=== PATIENT | male | born 1955 | race Caucasian/White ===

== ENCOUNTER → 2016-10-26 | Outpatient (CLI) | payer MEDICARE, BC | END | disposition home or self-care (01) | LOC: PCVCCLINIC 14:41 | PROVIDERS: ATTEND Internal Medicine Cardiovascular Disease | DX: I42.8 Other cardiomyopathies (principal); E78.00 Pure hypercholesterolemia, unspecified; I10 Essential (primary) hypertension; E11.9 Type 2 diabetes mellitus without complications; I25.10 Atherosclerotic heart disease of native coronary artery without angina pectoris; I48.0 Paroxysmal atrial fibrillation; I44.7 Left bundle-branch block, unspecified; I77.9 Disorder of arteries and arterioles, unspecified | CPT/HCPCS: 80061; 93005; G0463 ==

== ENCOUNTER → 2016-11-03 | Outpatient (CLI) | payer MEDICARE, BC | END | disposition home or self-care (01) | LOC: PCVCIMAG 13:24 | PROVIDERS: ATTEND Internal Medicine Cardiovascular Disease | DX: I65.22 Occlusion and stenosis of left carotid artery (principal); R07.9 Chest pain, unspecified; I42.8 Other cardiomyopathies; I10 Essential (primary) hypertension | CPT/HCPCS: 93306; 93880 ==

== ENCOUNTER → 2016-11-22 | Outpatient (CLI) | payer MEDICARE, BC ==
[~2016-11-22] MED LIST: DIAZEPAM 10 MG TABLET ONE; FENTANYL PF 100 MCG/2 ML VIAL. ONE; IOHEXOL 350 MG/ML 100ML VIAL. ONE; IOHEXOL 350 MG/ML 50 ML VIAL. ONE; IV NORMAL SALINE 1000ML BAG 1,000 ML ONE; LIDOCAINE 1% Multi-Dose 20 ML VIAL. ONE; MIDAZOLAM HCL 2 MG/2 ML VIAL. ONE; REGADENOSON 0.4 MG/5 ML DISP.SYRIN. IV ONE
== END | disposition home or self-care (01) ==
LOC: PCVCINTER 08:11
PROVIDERS: ATTEND Internal Medicine Cardiovascular Disease
DX: I42.8 Other cardiomyopathies (principal); E78.00 Pure hypercholesterolemia, unspecified; I10 Essential (primary) hypertension; E11.9 Type 2 diabetes mellitus without complications; I25.10 Atherosclerotic heart disease of native coronary artery without angina pectoris; I48.0 Paroxysmal atrial fibrillation; I44.7 Left bundle-branch block, unspecified; I77.9 Disorder of arteries and arterioles, unspecified
CPT/HCPCS: 75625; 93458; C1751; C1760; C1769; C1894; J2250; J2785; J3010; J7030; Q9967

== ENCOUNTER → 2017-06-01 | Outpatient (CLI) | payer MEDICARE, BC ==
--- NOTE | 2017-06-01 14:41 | PCVCIMAG ---
APPROVED REPORT Study performed: 06/01/2017 13:08:00 EXAM: Comprehensive 2D, Doppler, and color-flow Echocardiogram Patient Location: Echo lab Status: routine BSA: 2.42 HR: 58 bpmBP: 118/80 mmHg Rhythm: LBBB Other Information Study Quality: Good Risk Factors: Cardiac Risk Factors: HTN, Hyperlipidemia, Diabetes (insulin) Indications Diabetes Hypertension/HDD Hyperlipidemia, Cardiomyopathy, 2D Dimensions IVSd: 14.62 (7-11mm)LVOT Diam: 21.32 (18-24mm) LVDd: 46.23 mm PWd: 12.36 (7-11mm)Ascending Ao: 34.05 (22-36mm) LVDs: 38.46 (25-40mm) Left Atrium: 35.10 (27-40mm) Aortic Root: 30.77 mm LV Single Plane 4CH: 50.69 % LV Single Plane 2CH: 51.81 %Moore's LVEF: 51.25 % Biplane EF: 51.7 % Volumes Left Atrial Volume (Systole) Single Plane 4CH: 57.54 mLSingle Plane 2CH: 57.92 mL LA ESV Index: 26.00 mL/m2 Aortic Valve AoV Peak Keo.: 1.77 m/s AO Peak Gr.: 12.49 mmHgLVOT Max P.56 mmHg LVOT Max V: 1.37 m/s MANJU Vmax: 2.78 cm2 AI Vmax: 4.05 m/s AI [place]: 1.68 m/s2 AI PHT: 698.84 ms Mitral Valve E/A Ratio: 0.8 MV Decel. Time: 280.50 ms MV E Max Keo.: 1.02 m/s MV A Keo.: 1.27 m/s IVRT: 134.95 ms TDI E/Lateral E': 12.75E/Medial E': 12.75 Medial E' Keo.: 0.08 m/s Lateral E' Keo.: 0.08 m/s Pulmonary Valve PV Peak Gr.: 3.12 mmHg Pulmonary Vein P Vein S: 0.51 m/sP Vein A: 0.32 m/s P Vein D: 0.42 m/sP Vein A Dur.: 121.1 msec P Vein S/D Ratio: 1.21 Left Ventricle The left ventricle is normal size. There is normal LV segmental wall motion. There is normal left ventricular wall thickness. Left ventricular systolic function is mildly decreased. LVEF is 50%. The left ventricular diastolic function is normal. Right Ventricle The right ventricle is normal size. The right ventricular systolic function is normal. Atria The left atrium size is normal. The right atrium size is normal. Aortic Valve The aortic valve is normal in structure. Trace aortic regurgitation. There is no aortic valvular stenosis. Mitral Valve The mitral valve is normal in structure. There is no mitral valve regurgitation noted. No evidence of mitral valve stenosis. Tricuspid Valve The tricuspid valve is normal in structure. There is no tricuspid valve regurgitation noted. Pulmonic Valve The pulmonary valve is normal in structure. Trace pulmonic regurgitation. Great Vessels The aortic root is normal in size. IVC is normal in size and collapses with >50% inspiration Pericardium There is no pericardial effusion. <Conclusion> The left ventricle is normal size. There is normal left ventricular wall thickness. LVEF is 50%. The left ventricular diastolic function is normal. The right ventricle is normal size. The left atrium size is normal. The aortic valve is normal in structure. There is no mitral valve regurgitation noted. There is no tricuspid valve regurgitation noted. There is no pericardial effusion.
== END | disposition home or self-care (01) ==
LOC: PCVCIMAG 13:17
PROVIDERS: ATTEND Internal Medicine Cardiovascular Disease
DX: I35.1 Nonrheumatic aortic (valve) insufficiency (principal); I37.1 Nonrheumatic pulmonary valve insufficiency; I44.7 Left bundle-branch block, unspecified; I42.9 Cardiomyopathy, unspecified; I10 Essential (primary) hypertension; E78.00 Pure hypercholesterolemia, unspecified; E11.9 Type 2 diabetes mellitus without complications; I25.10 Atherosclerotic heart disease of native coronary artery without angina pectoris; I48.0 Paroxysmal atrial fibrillation; Z96.653 Presence of artificial knee joint, bilateral; Z79.82 Long term (current) use of aspirin; Z79.4 Long term (current) use of insulin; Z79.899 Other long term (current) drug therapy; Z87.891 Personal history of nicotine dependence
CPT/HCPCS: 80061; 93005; 93306; G0463

== ENCOUNTER → 2018-02-08 | Outpatient (CLI) | payer MEDICARE, BC | END | disposition home or self-care (01) | LOC: PCVCCLINIC 13:47 | DX: I25.10 Atherosclerotic heart disease of native coronary artery without angina pectoris (principal); E78.5 Hyperlipidemia, unspecified; I10 Essential (primary) hypertension; I48.0 Paroxysmal atrial fibrillation; I44.7 Left bundle-branch block, unspecified; R94.31 Abnormal electrocardiogram [ECG] [EKG]; Z87.891 Personal history of nicotine dependence; Z79.899 Other long term (current) drug therapy; Z79.82 Long term (current) use of aspirin; Z79.84 Long term (current) use of oral hypoglycemic drugs | CPT/HCPCS: 80061; 93005; G0463 ==

== ENCOUNTER → 2018-08-15 | Outpatient (CLI) | payer MEDICARE, BC | END | disposition home or self-care (01) | LOC: PCVCCLINIC 12:29 | PROVIDERS: ATTEND Internal Medicine Cardiovascular Disease | DX: I25.10 Atherosclerotic heart disease of native coronary artery without angina pectoris (principal); I48.0 Paroxysmal atrial fibrillation; E11.9 Type 2 diabetes mellitus without complications; E78.00 Pure hypercholesterolemia, unspecified; I10 Essential (primary) hypertension; I44.7 Left bundle-branch block, unspecified; I42.8 Other cardiomyopathies; R53.83 Other fatigue; Z87.891 Personal history of nicotine dependence; Z79.4 Long term (current) use of insulin | CPT/HCPCS: 36415; 80061; 93005; G0463 ==

== ENCOUNTER → 2018-10-05 | Outpatient (CLI) | payer MEDICARE, BC ==
--- NOTE | 2018-10-05 16:59 | PCVCIMAG ---
APPROVED REPORT Study performed: 10/05/2018 12:47:09 EXAM: Comprehensive 2D, Doppler, and color-flow Echocardiogram Patient Location: Echo lab Status: routine BSA: 2.51 HR: 73 bpmBP: 104/70 mmHg Rhythm: NSR Other Information Study Quality: Technically Difficult Indications Diabetes Atrial Fibrillation Hypertension/HDD Non-ischemic cardiomyopathy, LBBB Left Ventricle LVEF is 40-45%. Aortic Valve Mild aortic regurgitation. Great Vessels Ascending measures up to 4.3cm. Pericardium no effusion <Conclusion> LVEF is 40-45%. Mild aortic regurgitation. no effusion
== END | disposition home or self-care (01) ==
LOC: PCVCIMAG 12:44
PROVIDERS: ATTEND Internal Medicine Cardiovascular Disease
DX: I35.1 Nonrheumatic aortic (valve) insufficiency (principal); I25.10 Atherosclerotic heart disease of native coronary artery without angina pectoris; E11.9 Type 2 diabetes mellitus without complications; G47.33 Obstructive sleep apnea (adult) (pediatric); I10 Essential (primary) hypertension; I42.8 Other cardiomyopathies; I48.0 Paroxysmal atrial fibrillation; D68.59 Other primary thrombophilia; I44.7 Left bundle-branch block, unspecified; Z87.891 Personal history of nicotine dependence; Z99.89 Dependence on other enabling machines and devices; Z79.4 Long term (current) use of insulin
CPT/HCPCS: 36415; 80061; 93005; 93308; G0463

== ENCOUNTER → 2019-04-03 | Outpatient (CLI) | payer MEDICARE, BC ==
--- NOTE | 2019-04-03 12:40 | PCVCIMAG ---
APPROVED REPORT Study performed: 04/03/2019 10:56:39 EXAM: Comprehensive 2D, Doppler, and color-flow Echocardiogram Patient Location: Echo lab Status: routine BSA: 2.47 HR: 64 bpmBP: 140/80 mmHg Rhythm: LBBB Other Information Study Quality: Adequate Risk Factors: Cardiac Risk Factors: HTN, Hyperlipidemia Indications Cardiomyopathy Hypertension/HDD LBBB, ARAMIS 2D Dimensions IVSd: 17.37 (7-11mm)LVOT Diam: 23.12 (18-24mm) LVDd: 48.01 mm PWd: 13.27 (7-11mm)Ascending Ao: 41.35 (22-36mm) LVDs: 43.02 (25-40mm) Left Atrium: 42.14 (27-40mm) Aortic Root: 30.91 mm LV Single Plane 4CH: 41.01 % LV Single Plane 2CH: 47.38 % Biplane EF: 44.3 % Volumes Left Atrial Volume (Systole) Single Plane 4CH: 39.32 mLSingle Plane 2CH: 54.83 mL LA ESV Index: 19.00 mL/m2 Aortic Valve AoV Peak Keo.: 1.77 m/s AO Peak Gr.: 12.54 mmHg AI Vmax: 3.63 m/s AI [place]: 1.09 m/s2 AI PHT: 965.09 ms Mitral Valve E/A Ratio: 0.8 MV Decel. Time: 221.67 ms MV E Max Keo.: 0.94 m/s MV A Keo.: 1.17 m/s TDI E/Lateral E': 13.43E/Medial E': 15.67 Medial E' Keo.: 0.06 m/s Lateral E' Keo.: 0.07 m/s Pulmonary Valve PV Peak Gr.: 4.32 mmHg Pulmonary Vein P Vein S: 0.68 m/sP Vein A: 0.29 m/s P Vein D: 0.41 m/sP Vein A Dur.: 121.1 msec P Vein S/D Ratio: 1.66 Left Ventricle The left ventricle is normal size. There is global hypokinesis of the left ventricle. There is normal left ventricular wall thickness. Left ventricular systolic function is mildly decreased. LVEF is 40-45%. Grade I - abnormal relaxation pattern. Right Ventricle The right ventricle is normal size. The right ventricular systolic function is normal. Atria The left atrium size is normal. The right atrium size is normal. Aortic Valve The aortic valve is normal in structure. Trace to mild aortic regurgitation. There is no aortic valvular stenosis. Mitral Valve The mitral valve is normal in structure. Mild mitral regurgitation. No evidence of mitral valve stenosis. Tricuspid Valve The tricuspid valve is normal in structure. There is no tricuspid valve regurgitation noted. Pulmonic Valve The pulmonary valve is normal in structure. There is no pulmonic valvular regurgitation. Great Vessels The aortic root is normal in size. The ascending aorta is borderline dilated measuring 4.3 cm. IVC is normal in size and collapses >50% with inspiration. Pericardium There is no pericardial effusion. <Conclusion> The left ventricle is normal size. There is global hypokinesis of the left ventricle. LVEF is 40-45%. Grade I - abnormal relaxation pattern. The right ventricle is normal size. The left atrium size is normal. Trace to mild aortic regurgitation. Mild mitral regurgitation. There is no tricuspid valve regurgitation noted. The aortic root is normal in size. There is no pericardial effusion.
== END | disposition home or self-care (01) ==
LOC: PCVCIMAG 10:50
PROVIDERS: ATTEND Internal Medicine Cardiovascular Disease
DX: I08.0 Rheumatic disorders of both mitral and aortic valves (principal); I42.9 Cardiomyopathy, unspecified; I10 Essential (primary) hypertension; G47.33 Obstructive sleep apnea (adult) (pediatric); I48.0 Paroxysmal atrial fibrillation; I25.10 Atherosclerotic heart disease of native coronary artery without angina pectoris; I42.8 Other cardiomyopathies; I77.9 Disorder of arteries and arterioles, unspecified; R09.89 Other specified symptoms and signs involving the circulatory and respiratory systems; E78.00 Pure hypercholesterolemia, unspecified; I44.7 Left bundle-branch block, unspecified; E11.9 Type 2 diabetes mellitus without complications; E66.01 Morbid (severe) obesity due to excess calories; Z68.41 Body mass index [BMI] 40.0-44.9, adult; Z99.89 Dependence on other enabling machines and devices
CPT/HCPCS: 36415; 80061; 93306; G0463

== ENCOUNTER → 2019-05-14 | Outpatient (CLI) | payer MEDICARE, BC ==
--- NOTE | 2019-05-14 13:57 | PCVCIMAG ---
APPROVED REPORT Laterality: Bilateral Indications Stenosis Doppler Spectral Velocity Analysis PSV / EDVPSV / EDV ECA (R) 109 / 19 cm/sECA (L) 90 / 18 cm/s dICA (R) 59 / 25 cm/sdICA (L) 65 / 26 cm/s Marah (R) 64 / 27 cm/smICA (L) 70 / 27 cm/s pICA (R) 40 / 14 cm/spICA (L) 68 / 26 cm/s Bulb (R) 59 / 14 cm/sBulb (L) 65 / 17 cm/s dCCA (R) 81 / 22 cm/sdCCA (L) 91 / 30 cm/s mCCA (R) 99 / 22 cm/smCCA (L) 99 / 23 cm/s Vert (R) 32 / 14 cm/sVert (L) 37 / 11 cm/s ICA/CCA 0.79ICA/CCA 0.77 Findings The right carotid bulb has mild calcified plaque. The right proximal internal carotid artery shows <40% stenosis. The right common carotid artery shows no significant stenosis. The right external carotid artery shows no significant stenosis. The left carotid bulb has moderate calcified plaque. The left proximal internal carotid artery shows <40% stenosis. The left common carotid artery shows no significant stenosis. The left external carotid artery shows no significant stenosis. Conclusion 1. Right internal carotid artery stenosis (<40%) 2. Left internal carotid artery stenosis (<40%) 3. Antegrade vertebral flow
== END | disposition home or self-care (01) ==
LOC: PCVCIMAG 13:32
PROVIDERS: ATTEND Internal Medicine Cardiovascular Disease
DX: I65.23 Occlusion and stenosis of bilateral carotid arteries (principal); E78.2 Mixed hyperlipidemia; E11.9 Type 2 diabetes mellitus without complications; E78.00 Pure hypercholesterolemia, unspecified
CPT/HCPCS: 93005; 93880; G0463

== ENCOUNTER → 2019-06-05 | Outpatient (CLI) | payer MEDICARE, BC | END | disposition home or self-care (01) | LOC: PCVCCLINIC 16:01 | PROVIDERS: ATTEND Internal Medicine Cardiovascular Disease | DX: I48.0 Paroxysmal atrial fibrillation (principal); R00.0 Tachycardia, unspecified; E11.9 Type 2 diabetes mellitus without complications; G47.33 Obstructive sleep apnea (adult) (pediatric); I42.8 Other cardiomyopathies; I44.7 Left bundle-branch block, unspecified; I10 Essential (primary) hypertension; E78.00 Pure hypercholesterolemia, unspecified; E78.1 Pure hyperglyceridemia; D68.59 Other primary thrombophilia; Z79.899 Other long term (current) drug therapy; Z79.4 Long term (current) use of insulin; Z99.89 Dependence on other enabling machines and devices; Z88.8 Allergy status to other drugs, medicaments and biological substances; Z87.891 Personal history of nicotine dependence | CPT/HCPCS: 36415; 80061; 93005; G0463 ==